=== PATIENT | female | born 2000 | race Caucasian/White ===

== ENCOUNTER 2022-04-15 17:49 | Emergency (ER) | payer OTHER, SELFPAY ==
[2022-04-15 18:00] VITALS: BP 146/81; PULSE 120; RESP 20; TEMP 37; O2SAT 98
--- NOTE | 2022-04-15 18:24 | ED.SOB ---
HPI - SOB/Dyspnea General Chief Complaint: Shortness of Breath/Dyspnea Stated Complaint: labored breathing Time Seen by Provider: 04/15/22 18:10 Source: patient, RN notes reviewed and old records reviewed Mode of arrival: ambulatory Limitations: no limitations History of Present Illness HPI Narrative: 21-year-old female who presents to express care with complaints of cough, stuffy nose, headache, sore throat and upset stomach since yesterday and has felt feverish. Today she has been experiencing some shortness of breath and has noted wheezing. Patient has noted wheezing throughout her lung carrasco with some tachypnea noted, patient states that she ran out of her rescue inhaler and she bought some inhalers OTC (Primatene). Patient reports that father was ill with similar symptoms 3-4 days ago. When asked if she called her doctors office about her inhalers she stated no. MD elicited complaint: shortness of breath and cough Pertinent past history: asthma and other (ear infection) Related Data Home Medications Medication Instructions Recorded Confirmed albuterol sulfate 90 mcg/actuation 90 mcg inhalation DIRECTED 04/15/22 04/15/22 aerosol inhaler escitalopram oxalate 20 mg tablet 20 mg DIRECTED 04/15/22 04/15/22 fluticasone propionate 110 110 mcg inhalation DIRECTED 04/15/22 04/15/22 mcg/actuation HFA aerosol inhaler (Flovent HFA) trazodone 50 mg tablet 50 mg DIRECTED 04/15/22 04/15/22 Allergies Allergy/AdvReac Type Severity Reaction Status Date / Time No Known Allergies Allergy Verified 04/15/22 18:12 Review of Systems Review of Systems: CONSTITUTIONAL: reports has felt feverish, chills, or sweats. EYES: Denies visual changes, redness, or discharge. ENT: Positive for rhinorrhea, congestion, sore throat, otalgia. CARDIOVASCULAR: Denies chest pain, palpitations, or edema. RESPIRATORY:Positive for cough or dyspnea. GASTROINTESTINAL: Denies abdominal pain, nausea, vomiting, or diarrhea. GENITOURINARY: Denies dysuria or hematuria. SKIN: Denies rash or itching. MUSCULOSKELETAL: Denies back pain, joint pain, or myalgia. NEUROLOGIC: Positive for headache, no numbness, or weakness. PSYCHIATRIC: Positive for history of anxiety or depression. All systems reviewed & are unremarkable except as noted in HPI and below Constitutional: Comments: [facility] Past Medical History Medical History (Updated 04/20/22 @ 07:44 by Petra Oseguera NP) Asthma Depression Surgical History Surgical History (Updated 04/15/22 @ 19:48 by Petra Oseguera NP) No history of previous surgery Social History Social History (Updated 04/15/22 @ 19:48 by Petra Oseguera NP) Smoking status: Never smoker Alcohol intake: never Substance use: never Living arrangements: with family Gender identity (if verbalized by the patient): Female Comments At time of signature, agree with nursing past medical, surgical, social and family history. There is no relevant family history pertinent to the presenting complaint Exam Narrative: GENERAL: Well-appearing, well-nourished, morbid obesity,and in no acute distress. HEAD: Normocephalic, atraumatic. EYES: PERRLA and EOMI. ENT: Nares red with clear rhinorrhea no epistaxis. Mucous membranes moist.Right TM normal with good light reflex, Left TM red, er canal swollen and red, Throat with redness no lesions, no tonsil swelling NECK: Supple.no lymphadenopathy CHEST: Scattered wheezing throughout lung field, with some tachypnea and noted dyspnea, No acute respiratory distress.SAO2 97% on room air HEART: Regular rate and rhythm. No murmur heard. Normal peripheral pulses. ABDOMEN: Soft, nontender, nondistended, normal active bowel sounds. EXTREMITIES: Normal range of motion. No edema. SKIN: Warm, dry, no rash. NEURO: No focal deficits. Alert and oriented x3. Course Course Level of Care: Express Care Visit Vital Signs Vital signs: Vital Signs Temperature 37.0 C 04/15/22 18
[2022-04-15] MEDS: IPRATROPIUM BR 0.02% INH SOLN 0.5 MG/2.5 ML VIAL INHALATION (18:40)
[2022-04-15] MEDS: ALBUTEROL SULFATE NEB 2.5 MG/3 ML INH INHALATION (18:40)
[2022-04-15 18:41] VITALS: PULSE 116; RESP 24; O2SAT 92
[2022-04-15 19:07] VITALS: PULSE 123; RESP 20; O2SAT 97
== END 2022-04-15 19:35 | disposition home or self-care (01) ==
PROVIDERS: Emergency Provider Registered Nurse; PCP Family Medicine
DX: J45.901 Unspecified asthma with (acute) exacerbation (principal); H66.91 Otitis media, unspecified, right ear; H60.91 Unspecified otitis externa, right ear; J45.909 Unspecified asthma, uncomplicated; F32.A Depression, unspecified
CPT/HCPCS: 94640; 99213; G0463